=== PATIENT | male | born 1980 | race Two or more races ===

== ENCOUNTER 2020-06-28 23:12 | Emergency (ER) | payer SELFPAY ==
[~2020-06-28] VITALS: Ht 162.6 cm; Wt 68.0 kg
[2020-06-28] MEDS ORDERED: BACITRACIN ZINC OINT UDPKT TOP ONE (23:45)
[2020-06-29] MEDS ORDERED: CEFAZOLIN 1000MG PREMIX 50 ML IV STA ×2 (00:09→04:01)
[2020-06-29 00:26] LABS: BASOPHILS % 0.4 % (0.0-2.0); EOSINOPHILS % 0.4 % (0.0-5.0); HEMATOCRIT. 41.5 % (42.0-52.0); HEMOGLOBIN. 14.2 g/dL (14.0-18.0); LYMPHOCYTES % 13.2 % (20.0-50.0); MEAN CORPUSCULAR HEMOGLOBIN 31.5 pg (28.0-32.0); MEAN CORPUSCULAR VOLUME 91.8 fL (80.0-94.0); MEAN PLATELET VOLUME 8.3 fl (7.4-10.4); PLATELET 191 x1000/uL (130-400); RED BLOOD CELL COUNT 4.52 mill/uL (4.7-6.1); RED CELL DISTRIBUTION WIDTH 12.7 % (11.6-14.6)
[2020-06-29 00:35] LABS: CHLORIDE 107 mEq/L (98-107)
[2020-06-29 00:39] LABS: ETHANOL BLOOD 268 mg/dL
[2020-06-29] MEDS ORDERED: KETOROLAC 30MG/ML VIAL IV STA (02:23)
[2020-06-29] MEDS ORDERED: LIDOCAINE HCL 1% 20ML VIAL (Pyxis) INJ INFIL ONE ×2 (03:30→10:30)
[2020-06-29 05:20] VITALS: BP 99/54
[2020-06-29] MEDS ORDERED: CEFAZOLIN 2000MG PREMIX 50 ML IV SCH (08:30)
[2020-06-29] MEDS ORDERED: TETANUS AND DIPHTHERIA TOX/PF 0.5ML SYR (ADULT) IM ONE (10:15)
[2020-06-29] MEDS ORDERED: TETANUS, DIPHTHERIA, PERTUSSIS VAC/PF 0.5ML (>7YR OLD) IM ONE (10:30)
== END 2020-06-29 12:50 | disposition home or self-care (01) ==
LOC: ER 23:12
DX: S61.412A Laceration without foreign body of left hand, initial encounter (principal); I49.9 Cardiac arrhythmia, unspecified; Z20.822 Contact with and (suspected) exposure to COVID-19; X58.XXXA Exposure to other specified factors, initial encounter; Y93.89 Activity, other specified; Y92.89 Other specified places as the place of occurrence of the external cause; Y99.8 Other external cause status
CPT/HCPCS: 12002; 36415; 73130; 87426; 93005; 96365; 96367; 96375; 99285; J0690; J1885; J3490; 90714